=== PATIENT | female | born 1985 | race Hispanic/Latino ===

== ENCOUNTER 2019-02-05 14:01 | Emergency (ER) | payer MEDICAID ==
[~2019-02-05 14:01] MED LIST: ALPR2TAB2 PO
[2019-02-05 14:25] LABS: APPEARANCE,URINE Cloudy (CLEAR); BILIRUBIN,URINE Negative (NEGATIVE); COLOR,URINE Yellow (YELLOW); GLUCOSE, URINE (UA) Negative (NEGATIVE); KETONES,URINE Negative (NEGATIVE); LEUKOCYTE ESTERASE ,URINE Small (NEGATIVE); NITRATE,URINE Negative (NEGATIVE); OCCULT BLOOD,URINE Negative (NEGATIVE); PROTEIN,URINE Negative (NEGATIVE)
[2019-02-05 14:30] LABS: HCG,QUAL RESULT NEGATIVE (NEGATIVE)
[2019-02-05] MEDS ORDERED: ORPHENADRINE CITRATE 30 MG/ML ML ONE (14:34)
[2019-02-05] MEDS ORDERED: KETOROLAC TROMETHAMINE 60 MG/2 ML VIAL ONE (14:34)
[2019-02-05 15:01] LABS: AMORPHOUS SEDIMENT,UR Many /LPF (None Seen); BACTERIA,URINE Few /HPF (None Seen); RBC,URINE None Seen /HPF (0-1)
== END 2019-02-05 15:38 | disposition home or self-care (01) ==
LOC: EDH 14:01
DX: S29.012A Strain of muscle and tendon of back wall of thorax, initial encounter (principal); N39.0 Urinary tract infection, site not specified; Z98.890 Other specified postprocedural states; X58.XXXA Exposure to other specified factors, initial encounter; Y93.89 Activity, other specified; Y92.89 Other specified places as the place of occurrence of the external cause; Y99.8 Other external cause status
CPT/HCPCS: 71046; 81001; 81025; 96372 ×2; 99285; J1885; J2360

== ENCOUNTER 2020-05-10 02:25 | Emergency (ER) | payer MEDICAID ==
[2020-05-10 03:33] LABS: BASOPHILS % (AUTO) 0.7 % (0.0-5.0); EOSINOPHILS % (AUTO) 2.8 % (0.0-8.0); HEMATOCRIT 38.4 % (36-48); LYMPHOCYTES % (AUTO) 35.8 % (21.0-51.0); MEAN CORPUSCULAR HEMOGLOBIN 28.9 pg (27.0-33.0); MEAN CORPUSCULAR HGB CONC 32.6 g/dL (32.0-36.0); MEAN CORPUSCULAR VOLUME 88.9 fL (79-99); MONOCYTES % (AUTO) 7.8 % (3.0-13.0); NEUTROPHILS % (AUTO) 52.6 % (40.0-77.0); PLATELET COUNT (AUTO) 370 K/uL (130-400); RED BLOOD CELL COUNT(AUTO) 4.32 MIL/uL (4.00-5.50); RED CELL DISTRIBUTION WIDTH 12.1 % (11.0-15.5); WHITE BLOOD COUNT (AUTO) 7.2 K/uL (4.8-10.8)
[2020-05-10 03:42] LABS: CREATININE 0.9 mg/dL (0.5-1.5); POTASSIUM 3.4 mmol/L (3.5-5.1)
[2020-05-10 03:53] LABS: ALBUMIN 3.7 g/dL (3.5-5.0); BILIRUBIN,TOTAL 0.2 mg/dL (0.2-1.0); TOTAL PROTEIN, SERUM 6.9 g/dL (6.0-8.3)
[2020-05-10 04:22] LABS: APPEARANCE,URINE Clear (CLEAR); BILIRUBIN,URINE Negative (NEGATIVE); COLOR,URINE Yellow (YELLOW); GLUCOSE, URINE (UA) Negative (NEGATIVE); KETONES,URINE Negative (NEGATIVE); LEUKOCYTE ESTERASE ,URINE Small (NEGATIVE); NITRATE,URINE Negative (NEGATIVE); OCCULT BLOOD,URINE Negative (NEGATIVE); PH,URINE 6.5 (5.0-8.0); PROTEIN,URINE Negative (NEGATIVE)
[2020-05-10 04:28] LABS: RBC,URINE 0-1 /HPF (0-1)
[2020-05-10 04:29] LABS: BACTERIA,URINE None Seen /HPF (None Seen); SQUAMOUS EPITHELIAL CELL,UR Few /HPF (0-2); TRICHOMONAS,URINE Moderate /LPF (None Seen)
[2020-05-10 04:30] LABS: AMPHET/METH SCREEN,URINE POSITIVE (NEGATIVE); BARBITURATE SCREEN, URINE NEGATIVE (NEGATIVE); BENZODIAZEPINES SCREEN,URINE NEGATIVE (NEGATIVE); CANNABINOID SCREEN,URINE POSITIVE (NEGATIVE); COCAINE SCREEN,URINE POSITIVE (NEGATIVE); OPIATE SCREEN,URINE NEGATIVE (NEGATIVE); PHENCYCLIDINE SCREEN,URINE NEGATIVE (NEGATIVE)
[2020-05-10] MEDS ORDERED: CEFTRIAXONE SODIUM 1 GM ONE (04:45)
[2020-05-10] MEDS ORDERED: AZITHROMYCIN 250 MG TABLET PO ONE (04:45)
[2020-05-10] MEDS ORDERED: METRONIDAZOLE 250 MG TABLET ONE (04:46)
== END 2020-05-10 05:32 | disposition home or self-care (01) ==
LOC: EDH 02:25
DX: A59.01 Trichomonal vulvovaginitis (principal); F19.10 Other psychoactive substance abuse, uncomplicated
CPT/HCPCS: 36415; 74018; 80053; 80305; 81001; 84702; 85025; 87088; 96372; 99284; J0696

== ENCOUNTER 2021-01-23 18:32 | Emergency (ER) | payer MEDICAID ==
[~2021-01-23 18:32] MED LIST changes: +SYMB8060 IH
[2021-01-23] MEDS ORDERED: ACETAMINOPHEN 500 MG TABLET ONE (19:20)
== END 2021-01-23 19:31 ==
LOC: EDH 18:32 → EEVIPCON 18:32 → EDH 19:31
DX: Z02.89 Encounter for other administrative examinations (principal)

== ENCOUNTER 2021-06-16 12:52 | Emergency (ER) | payer MEDICAID ==
[~2021-06-16] VITALS: Ht 167.6 cm; Wt 73.5 kg
[2021-06-16 13:26] LABS: BASOPHILS % (AUTO) 0.4 % (0.0-5.0); EOSINOPHILS % (AUTO) 0.2 % (0.0-8.0); LYMPHOCYTES % (AUTO) 9.7 % (21.0-51.0); MEAN CORPUSCULAR HEMOGLOBIN 29.1 pg (27.0-33.0); MEAN CORPUSCULAR HGB CONC 32.8 g/dL (32.0-36.0); MEAN CORPUSCULAR VOLUME 88.7 fL (79-99); MONOCYTES % (AUTO) 6.2 % (3.0-13.0); PLATELET COUNT (AUTO) 254 K/uL (130-400); RED BLOOD CELL COUNT(AUTO) 4.85 MIL/uL (4.00-5.50); RED CELL DISTRIBUTION WIDTH 13.1 % (11.0-15.5); WHITE BLOOD COUNT (AUTO) 14.2 K/uL (4.8-10.8)
[2021-06-16] MEDS ORDERED: KETOROLAC 30MG VIAL (30MG/ML) IVP ONE (13:30)
[2021-06-16] MEDS ORDERED: ONDANSETRON 4MG INJ IVP ONE (13:30)
[2021-06-16] MEDS ORDERED: 0.9%NACL 1000ML 1,000 ML IV ONE (13:30)
[2021-06-16 13:40] LABS: ALANINE AMINOTRANSFERASE 16 U/L (12-78); ALBUMIN 3.2 g/dL (3.5-5.0); ASPARTATE AMINOTRANSFERASE 24 U/L (10-37); BILIRUBIN,TOTAL 0.9 mg/dL (0.2-1.0); CARBON DIOXIDE 27 mmol/L (21-32); CHLORIDE 98 mmol/L (101-111); CREATININE 0.8 mg/dL (0.5-1.5); GLOMERULAR FILTR. RATE CALC 87 mL/min (>60); GLUCOSE,RANDOM 105 mg/dL (70-105); POTASSIUM 4.4 mmol/L (3.5-5.1); SODIUM SERUM 136 mmol/L (136-145); TOTAL PROTEIN, SERUM 7.6 g/dL (6.0-8.3); UREA NITROGEN, BLOOD 8 mg/dL (7-18)
[2021-06-16 13:58] LABS: LIPASE < 50 U/L (114-286)
[2021-06-16 13:59] LABS: APPEARANCE,URINE Clear (CLEAR); BILIRUBIN,URINE Negative (NEGATIVE); COLOR,URINE Yellow (YELLOW); GLUCOSE, URINE (UA) Negative (NEGATIVE); KETONES,URINE 40 mg/dL (NEGATIVE); LEUKOCYTE ESTERASE ,URINE Moderate (NEGATIVE); NITRATE,URINE Negative (NEGATIVE); OCCULT BLOOD,URINE Trace (NEGATIVE); PH,URINE 8.5 (5.0-8.0); PROTEIN,URINE POS 1+ mg/dL (NEGATIVE)
[2021-06-16 14:20] LABS: BACTERIA,URINE Few /HPF (None Seen); MUCUS,URINE Few LPF (None Seen); SQUAMOUS EPITHELIAL CELL,UR Few /HPF (0-2)
[2021-06-16] MEDS ORDERED: CEFTRIAXONE 1G VIAL IVP ONE (15:30)
[2021-06-16] MEDS ORDERED: PHENAZOPYRIDINE HCL 200 MG TABLET PO ONE (15:30)
[2021-06-16] MEDS ORDERED: ONDA4TAB10 PO (15:38)
[2021-06-16] MEDS ORDERED: PHEN-847 PO (15:38)
[2021-06-16] MEDS ORDERED: CEPH500B PO (15:38)
[2021-06-16 15:48] VITALS: BP 128/76
== END 2021-06-16 16:05 | disposition home or self-care (01) ==
LOC: EDH 12:52
DX: N13.2 Hydronephrosis with renal and ureteral calculous obstruction (principal); N39.0 Urinary tract infection, site not specified; Z79.899 Other long term (current) drug therapy; Z79.51 Long term (current) use of inhaled steroids; Z98.51 Tubal ligation status
CPT/HCPCS: 36415; 71045; 74176; 80053; 81001; 81025; 83690; 84703; 85025; 87077; 87088; 87186; 96361; 96374; 96375; 99285; J0696; J1885; J2405; J7030

== ENCOUNTER 2021-08-13 04:14 | Emergency (ER) | payer MEDICAID ==
[~2021-08-13] VITALS: Ht 172.7 cm; Wt 73.5 kg
[~2021-08-13 04:14] MED LIST changes: +CEPH500B PO; +ONDA4TAB10 PO; +PHEN-847 PO
[2021-08-13] MEDS ORDERED: MORPHINE 4 MG SYG IVP ONE (04:30)
[2021-08-13] MEDS ORDERED: ONDANSETRON 4MG INJ IVP ONE (04:30)
[2021-08-13] MEDS ORDERED: FENTANYL CITRATE PF 50 MCG/1 ML 2ML VIAL ONE (04:33)
[2021-08-13] MEDS ORDERED: ONDANSETRON 4MG INJ ONE (04:33)
[2021-08-13 04:44] LABS: BASOPHILS % (AUTO) 0.3 % (0.0-5.0); EOSINOPHILS % (AUTO) 1.5 % (0.0-8.0); HEMATOCRIT 36.4 % (36-48); LYMPHOCYTES % (AUTO) 17.3 % (21.0-51.0); MEAN CORPUSCULAR HEMOGLOBIN 28.6 pg (27.0-33.0); MEAN CORPUSCULAR HGB CONC 33.2 g/dL (32.0-36.0); MEAN CORPUSCULAR VOLUME 86.1 fL (79-99); MONOCYTES % (AUTO) 6.1 % (3.0-13.0); NEUTROPHILS % (AUTO) 74.5 % (40.0-77.0); PLATELET COUNT (AUTO) 290 K/uL (130-400); RED BLOOD CELL COUNT(AUTO) 4.23 MIL/uL (4.00-5.50); RED CELL DISTRIBUTION WIDTH 12.7 % (11.0-15.5); WHITE BLOOD COUNT (AUTO) 10.3 K/uL (4.8-10.8)
[2021-08-13 04:59] LABS: CARBON DIOXIDE 26 mmol/L (21-32); CHLORIDE 103 mmol/L (101-111); CREATININE 0.7 mg/dL (0.5-1.5); GLOMERULAR FILTR. RATE CALC 102 mL/min (>60); GLUCOSE,RANDOM 95 mg/dL (70-105); POTASSIUM 3.9 mmol/L (3.5-5.1); SODIUM SERUM 136 mmol/L (136-145); UREA NITROGEN, BLOOD 11 mg/dL (7-18)
[2021-08-13] MEDS ORDERED: FENTANYL CITRATE PF 50 MCG/1 ML 2ML VIAL IVP ONE (05:00)
[2021-08-13 05:04] LABS: ALANINE AMINOTRANSFERASE 24 U/L (12-78); ALBUMIN 4.1 g/dL (3.5-5.0); ALCOHOL, BLOOD < 3 mg/dL (0-10); ASPARTATE AMINOTRANSFERASE 21 U/L (10-37); BILIRUBIN,TOTAL 0.4 mg/dL (0.2-1.0); TOTAL PROTEIN, SERUM 7.1 g/dL (6.0-8.3)
[2021-08-13 06:20] VITALS: BP 112/82
== END 2021-08-13 08:10 | disposition left against medical advice (07) ==
LOC: EDH 04:14
DX: S53.105A Unspecified dislocation of left ulnohumeral joint, initial encounter (principal); Z79.899 Other long term (current) drug therapy; W18.39XA Other fall on same level, initial encounter; Y93.89 Activity, other specified; Y92.89 Other specified places as the place of occurrence of the external cause; Y99.8 Other external cause status
CPT/HCPCS: 24600; 36415; 73070 ×2; 80053; 85025; 96374; 96375; 99284; J2405; J3010; 24640

== ENCOUNTER 2022-01-03 23:16 | Emergency (ER) | payer OTHER, MEDICAID ==
[~2022-01-03] VITALS: Ht 152.4 cm; Wt 71.2 kg
[2022-01-03 23:51] LABS: BASOPHILS % (AUTO) 0.5 % (0.0-5.0); EOSINOPHILS % (AUTO) 1.9 % (0.0-8.0); HEMATOCRIT 38.1 % (36-48); LYMPHOCYTES % (AUTO) 32.3 % (21.0-51.0); MEAN CORPUSCULAR HEMOGLOBIN 29.3 pg (27.0-33.0); MEAN CORPUSCULAR HGB CONC 33.1 g/dL (32.0-36.0); MEAN CORPUSCULAR VOLUME 88.6 fL (79-99); MONOCYTES % (AUTO) 10.6 % (3.0-13.0); NEUTROPHILS % (AUTO) 54.4 % (40.0-77.0); PLATELET COUNT (AUTO) 336 K/uL (130-400); RED CELL DISTRIBUTION WIDTH 13.3 % (11.0-15.5); WHITE BLOOD COUNT (AUTO) 8.8 K/uL (4.8-10.8)
[2022-01-04] LABS: POTASSIUM 4.1 mmol/L (3.5-5.1)
[2022-01-04] MEDS ORDERED: CEFAZOLIN SODIUM 1 GM VIAL IVP SCH
[2022-01-04] MEDS ORDERED: MORPHINE 4 MG SYG IVP ONE
[2022-01-04] MEDS ORDERED: ONDANSETRON 4MG INJ IVP ONE
[2022-01-04] MEDS ORDERED: KETOROLAC 15MG/ML VIAL (15MG/ML) IV ONE
[2022-01-04 00:05] LABS: ALBUMIN 3.4 g/dL (3.5-5.0); BILIRUBIN,TOTAL 0.2 mg/dL (0.2-1.0); TOTAL PROTEIN, SERUM 6.4 g/dL (6.0-8.3)
[2022-01-04 00:26] LABS: INR 0.93 (0.85-1.15); PROTHROMBIN TIME 9.7 SEC (9.6-11.6)
[2022-01-04 00:35] VITALS: BP 121/76
[2022-01-04] MEDS ORDERED: ACET-2079 PO (00:51)
[2022-01-04] MEDS ORDERED: CEPH500B PO (00:51)
== END 2022-01-04 02:18 | disposition home or self-care (01) ==
LOC: EDH 23:16
DX: S92.341A Displaced fracture of fourth metatarsal bone, right foot, initial encounter for closed fracture (principal); S92.351A Displaced fracture of fifth metatarsal bone, right foot, initial encounter for closed fracture; F17.200 Nicotine dependence, unspecified, uncomplicated; Z79.1 Long term (current) use of non-steroidal anti-inflammatories (NSAID); Z79.51 Long term (current) use of inhaled steroids; W34.00XA Accidental discharge from unspecified firearms or gun, initial encounter; Y93.89 Activity, other specified; Y92.89 Other specified places as the place of occurrence of the external cause; Y99.8 Other external cause status
CPT/HCPCS: 29515; 36415; 73630; 80053; 85025; 85610; 96374; 96375; 99284; J0690; J1885; J2270; J2405

== ENCOUNTER 2022-01-21 14:42 | Emergency (ER) | payer OTHER, MEDICAID ==
[~2022-01-21] VITALS: Ht 167.6 cm; Wt 68.9 kg
[~2022-01-21 14:42] MED LIST changes: +ACET-2079 PO
[2022-01-21] MEDS ORDERED: CEFTRIAXONE 1G VIAL IM ONE (15:00)
[2022-01-21] MEDS ORDERED: HYDROCODONE/ACETAMINOPHEN 10/325 MG TAB PO ONE (15:00)
[2022-01-21] MEDS ORDERED: AZITHROMYCIN 250 MG TABLET PO ONE (15:00)
[2022-01-21] MEDS ORDERED: ACET1TAB97 PO (15:46)
[2022-01-21 16:13] LABS: APPEARANCE,URINE Clear (CLEAR); BILIRUBIN,URINE Negative (NEGATIVE); COLOR,URINE Yellow (YELLOW); GLUCOSE, URINE (UA) Negative (NEGATIVE); KETONES,URINE Negative (NEGATIVE); LEUKOCYTE ESTERASE ,URINE Small (NEGATIVE); NITRATE,URINE Negative (NEGATIVE); OCCULT BLOOD,URINE Negative (NEGATIVE); PROTEIN,URINE Negative (NEGATIVE); UROBILINOGEN,URINE 0.2 mg/dL (0.2-1.0)
[2022-01-21 16:21] LABS: BACTERIA,URINE Rare /HPF (None Seen); MUCUS,URINE Few LPF (None Seen); RBC,URINE 0-1 /HPF (0-1); SQUAMOUS EPITHELIAL CELL,UR Few /HPF (0-2)
[2022-01-21 16:24] VITALS: BP 110/65
== END 2022-01-21 16:25 | disposition home or self-care (01) ==
LOC: EDH 14:42
DX: S91.331A Puncture wound without foreign body, right foot, initial encounter (principal); A64 Unspecified sexually transmitted disease; F17.200 Nicotine dependence, unspecified, uncomplicated; Z79.899 Other long term (current) drug therapy; Z98.890 Other specified postprocedural states; W34.00XA Accidental discharge from unspecified firearms or gun, initial encounter; Y93.89 Activity, other specified; Y92.89 Other specified places as the place of occurrence of the external cause; Y99.8 Other external cause status
CPT/HCPCS: 99284; 87797; 87486; 81001; 73630; 96372; J0696

== ENCOUNTER 2022-02-17 11:44 | Emergency (ER) | payer MEDICAID ==
[~2022-02-17] VITALS: Ht 167.6 cm; Wt 68.9 kg
[~2022-02-17 11:44] MED LIST changes: +ACET1TAB97 PO
[2022-02-17 12:05] LABS: BASOPHILS % (AUTO) 0.5 % (0.0-5.0); EOSINOPHILS % (AUTO) 0.9 % (0.0-8.0); HEMATOCRIT 36.4 % (36-48); LYMPHOCYTES % (AUTO) 26.5 % (21.0-51.0); MEAN CORPUSCULAR HGB CONC 32.7 g/dL (32.0-36.0); MEAN CORPUSCULAR VOLUME 88.8 fL (79-99); MONOCYTES % (AUTO) 8.3 % (3.0-13.0); NEUTROPHILS % (AUTO) 63.6 % (40.0-77.0); PLATELET COUNT (AUTO) 390 K/uL (130-400); RED CELL DISTRIBUTION WIDTH 12.6 % (11.0-15.5); WHITE BLOOD COUNT (AUTO) 8.4 K/uL (4.8-10.8)
[2022-02-17 12:27] LABS: CREATININE 0.8 mg/dL (0.5-1.5); POTASSIUM 3.8 mmol/L (3.5-5.1)
[2022-02-17] MEDS ORDERED: ZOSYN 3.375GM +NS 50ML IV SCH (12:30)
[2022-02-17] MEDS ORDERED: MORPHINE 4 MG SYG IVP ONE ×2 (12:30→16:30)
[2022-02-17] MEDS ORDERED: ONDANSETRON 4MG INJ IVP ONE (12:30)
[2022-02-17] MEDS ORDERED: 0.9%NACL 1000ML 1,000 ML IV SCH (12:30)
[2022-02-17 12:33] LABS: ALBUMIN 3.8 g/dL (3.5-5.0); BILIRUBIN,TOTAL 0.3 mg/dL (0.2-1.0); TOTAL PROTEIN, SERUM 7.6 g/dL (6.0-8.3)
[2022-02-17 13:55] VITALS: BP 125/87
[2022-02-17] MEDS ORDERED: ACET-2079 PO (15:58)
[2022-02-17] MEDS ORDERED: DOXY-336 PO (15:58)
[2022-02-17] MEDS ORDERED: TRAM50TA4 PO (17:02)
== END 2022-02-17 17:17 | disposition home or self-care (01) ==
LOC: EDH 11:44
DX: L08.9 Local infection of the skin and subcutaneous tissue, unspecified (principal); M79.674 Pain in right toe(s); F31.9 Bipolar disorder, unspecified; F17.200 Nicotine dependence, unspecified, uncomplicated; Z98.890 Other specified postprocedural states; Z79.899 Other long term (current) drug therapy
CPT/HCPCS: 36415; 73630; 80053; 83605; 84145; 84703; 85025; 85651; 86140; 87040 ×2; 96365; 96375; 96376; 99284; J2270 ×2; J2405; J2543; J7030

== ENCOUNTER 2023-07-30 15:34 | Emergency (ER) | payer OTHER, MEDICAID ==
[~2023-07-30] VITALS: Ht 167.6 cm; Wt 71.7 kg
[~2023-07-30 15:34] MED LIST changes: -ACET-2079 PO; -ACET1TAB97 PO; -ALPR2TAB2 PO; -ONDA4TAB10 PO; -PHEN-847 PO; -SYMB8060 IH
[2023-07-30 16:01] VITALS: BP 143/87; PULSE 107; RESP 16; O2SAT 99
[2023-07-30] MEDS ORDERED: SOLU-MEDROL 125MG VIAL IVP ONE (16:30)
[2023-07-30] MEDS ORDERED: CEFTRIAXONE 1G VIAL IVPB ONE (16:30)
[2023-07-30] MEDS ORDERED: FAMOTIDINE 20MG VIAL IV ONE (16:30)
[2023-07-30] MEDS ORDERED: 0.9%NACL 1000ML 1,000 ML IV ONE (16:30)
[2023-07-30] MEDS ORDERED: LIDOCAINE HCL 1% 20 ML VIAL INJ SCH (16:30)
[2023-07-30] MEDS ORDERED: DiphenhydrAMINE HCL 50 MG/ML VIAL IV ONE (16:30)
[2023-07-30 16:58] LABS: BASOPHILS # (AUTO) 0.03 K/uL (0.00-0.20); BASOPHILS % (AUTO) 0.3 % (0.0-5.0); EOSINOPHILS # (AUTO) 0.06 K/uL (0.00-0.70); EOSINOPHILS % (AUTO) 0.7 % (0.0-8.0); HEMATOCRIT 38.2 % (36-48); IMMATURE GRANULOCYTE ABSOLUTE 0.03 K/uL (0-1); LYMPHOCYTES # (AUTO) 2.7 K/uL (1.0-4.8); LYMPHOCYTES % (AUTO) 29.6 % (21.0-51.0); MEAN CORPUSCULAR HEMOGLOBIN 29.2 pg (27.0-33.0); MEAN CORPUSCULAR HGB CONC 33.5 g/dL (32.0-36.0); MONOCYTES # (AUTO) 0.6 K/uL (0.1-1.0); MONOCYTES % (AUTO) 6.1 % (3.0-13.0); NEUTROPHILS # (AUTO) 5.7 K/uL (1.8-7.7); PLATELET COUNT (AUTO) 360 K/uL (130-400); RED BLOOD CELL COUNT(AUTO) 4.39 MIL/uL (4.00-5.50); RED CELL DISTRIBUTION WIDTH 12.3 % (11.0-15.5); WHITE BLOOD COUNT (AUTO) 9.1 K/uL (4.8-10.8)
[2023-07-30 16:59] LABS: CREATININE 0.8 mg/dL (0.5-1.5); POTASSIUM 3.6 mmol/L (3.5-5.1)
[2023-07-30 17:04] LABS: ALBUMIN 3.7 g/dL (3.5-5.0); BILIRUBIN,TOTAL 0.5 mg/dL (0.2-1.0); TOTAL PROTEIN, SERUM 7.3 g/dL (6.0-8.3)
[2023-07-30] MEDS ORDERED: AMOX1TAB16 PO (17:10)
[2023-07-30 17:21] LABS: APPEARANCE,URINE CLEAR (CLEAR); BILIRUBIN,URINE NEGATIVE (NEGATIVE); COLOR,URINE YELLOW (YELLOW); GLUCOSE, URINE (UA) NEGATIVE (NEGATIVE); KETONES,URINE 20 mg/dL (NEGATIVE); LEUKOCYTE ESTERASE ,URINE NEGATIVE Leu/uL (NEGATIVE); NITRATE,URINE NEGATIVE (NEGATIVE); OCCULT BLOOD,URINE NEGATIVE (NEGATIVE); PROTEIN,URINE 30 mg/dL (NEGATIVE)
[2023-07-30 17:44] LABS: ADD UA MICROSCOPIC YES
[2023-07-30 17:46] LABS: BACTERIA,URINE RARE /HPF (None Seen); MUCUS,URINE MANY LPF (None Seen); RBC,URINE 0-1 /HPF (0-1); SQUAMOUS EPITHELIAL CELL,UR FEW /HPF (0-2); WBC,URINE 0-1 /HPF (0-1)
== END 2023-07-30 17:56 | disposition home or self-care (01) ==
LOC: EDH 15:34
DX: T78.49XA Other allergy, initial encounter (principal); L02.211 Cutaneous abscess of abdominal wall; F17.200 Nicotine dependence, unspecified, uncomplicated; Z79.899 Other long term (current) drug therapy; Z98.890 Other specified postprocedural states; Z88.8 Allergy status to other drugs, medicaments and biological substances; X58.XXXA Exposure to other specified factors, initial encounter
CPT/HCPCS: 99284; 96365; 10060; 96375; 80053; 85025; 87070; 87076; 87077; 87186; 83605; 81001; 36415; J1200; J3490; J2930; J0696

== ENCOUNTER 2023-11-03 02:22 | Emergency (ER) | payer OTHER, MEDICAID ==
[~2023-11-03] VITALS: Ht 167.6 cm; Wt 81.6 kg
[~2023-11-03 02:22] MED LIST changes: +AMOX1TAB16 PO
[2023-11-03 03:08] LABS: CARBON DIOXIDE 29 mmol/L (21-32); CHLORIDE 104 mmol/L (101-111); CREATININE 0.7 mg/dL (0.5-1.0); GLOMERULAR FILTR. RATE CALC 115 mL/min (>90); POTASSIUM 3.1 mmol/L (3.5-5.1); SODIUM SERUM 140 mmol/L (136-145); UREA NITROGEN, BLOOD 15 mg/dL (7-18)
[2023-11-03 03:12] LABS: ALANINE AMINOTRANSFERASE 15 U/L (12-78); ALBUMIN 3.7 g/dL (3.5-5.0); ALCOHOL, BLOOD < 3 mg/dL (0-10); ASPARTATE AMINOTRANSFERASE 16 U/L (10-37); BILIRUBIN,TOTAL 0.1 mg/dL (0.2-1.0); CREATINE KINASE, TOTAL 70 U/L (21-232)
[2023-11-03 03:18] LABS: GLUCOSE,RANDOM 119 mg/dL (70-105)
[2023-11-03 03:21] LABS: ACETAMINOPHEN < 1 mcg/mL (10-30); SALICYLATE < 2.8 mg/dL (2.8-20.0)
[2023-11-03 03:28] LABS: BASOPHILS # (AUTO) 0.05 K/uL (0.00-0.20); BASOPHILS % (AUTO) 0.5 % (0.0-5.0); EOSINOPHILS # (AUTO) 0.15 K/uL (0.00-0.70); EOSINOPHILS % (AUTO) 1.6 % (0.0-8.0); HEMATOCRIT 40.1 % (36-48); IMMATURE GRANULOCYTE ABSOLUTE 0.03 K/uL (0-1); LYMPHOCYTES # (AUTO) 3.8 K/uL (1.0-4.8); LYMPHOCYTES % (AUTO) 39.3 % (21.0-51.0); MEAN CORPUSCULAR HEMOGLOBIN 29.3 pg (27.0-33.0); MEAN CORPUSCULAR HGB CONC 33.2 g/dL (32.0-36.0); MEAN CORPUSCULAR VOLUME 88.3 fL (79-99); MONOCYTES # (AUTO) 0.6 K/uL (0.1-1.0); MONOCYTES % (AUTO) 6.2 % (3.0-13.0); NEUTROPHILS % (AUTO) 52.1 % (40.0-77.0); PLATELET COUNT (AUTO) 297 K/uL (130-400); RED BLOOD CELL COUNT(AUTO) 4.54 MIL/uL (4.00-5.50); RED CELL DISTRIBUTION WIDTH 12.9 % (11.0-15.5); WHITE BLOOD COUNT (AUTO) 9.5 K/uL (4.8-10.8)
[2023-11-03 06:06] LABS: APPEARANCE,URINE TURBID (CLEAR); BILIRUBIN,URINE NEGATIVE (NEGATIVE); COLOR,URINE LIGHT-YELLOW (YELLOW); GLUCOSE, URINE (UA) NEGATIVE (NEGATIVE); KETONES,URINE NEGATIVE (NEGATIVE); LEUKOCYTE ESTERASE ,URINE NEGATIVE Leu/uL (NEGATIVE); NITRATE,URINE NEGATIVE (NEGATIVE); OCCULT BLOOD,URINE NEGATIVE (NEGATIVE); PH,URINE 6.5 (5.0-8.0); PROTEIN,URINE NEGATIVE (NEGATIVE); UROBILINOGEN,URINE 0.2 mg/dL (0.2-1.0)
[2023-11-03 06:12] LABS: ADD UA MICROSCOPIC YES
[2023-11-03 06:13] LABS: AMPHET/METH SCREEN,URINE NEGATIVE (NEGATIVE); BARBITURATE SCREEN, URINE NEGATIVE (NEGATIVE); BENZODIAZEPINES SCREEN,URINE NEGATIVE (NEGATIVE); CANNABINOID SCREEN,URINE POSITIVE (NEGATIVE); COCAINE SCREEN,URINE POSITIVE (NEGATIVE); HCG,QUALITATIVE URINE NEGATIVE (NEGATIVE); OPIATE SCREEN,URINE NEGATIVE (NEGATIVE); PHENCYCLIDINE SCREEN,URINE NEGATIVE (NEGATIVE)
[2023-11-03 06:15] LABS: BACTERIA,URINE RARE /HPF (None Seen); MUCUS,URINE RARE LPF (None Seen); SQUAMOUS EPITHELIAL CELL,UR FEW /HPF (0-2)
[2023-11-03] MEDS: KCL 20 MEQ ERTAB PO ONE (07:47)
[2023-11-03 10:50] VITALS: BP 118/68; PULSE 78; RESP 16; O2SAT 99
== END 2023-11-03 10:53 ==
LOC: EDH 02:22
DX: R45.851 Suicidal ideations (principal); E87.6 Hypokalemia; F19.10 Other psychoactive substance abuse, uncomplicated; F17.200 Nicotine dependence, unspecified, uncomplicated; F41.9 Anxiety disorder, unspecified
CPT/HCPCS: 99285; 82550; 80053; 80305; 85025; 81001; 81025; 36415; G0481

== ENCOUNTER 2024-02-24 21:35 | Emergency (ER) | payer MEDICAID, OTHER ==
[~2024-02-24] VITALS: Ht 165.1 cm; Wt 72.6 kg
[2024-02-24 21:54] VITALS: BP 109/60; PULSE 78; RESP 16
[2024-02-24 23:05] LABS: APPEARANCE,URINE CLEAR (CLEAR); BILIRUBIN,URINE NEGATIVE (NEGATIVE); GLUCOSE, URINE (UA) NEGATIVE (NEGATIVE); KETONES,URINE NEGATIVE (NEGATIVE); LEUKOCYTE ESTERASE ,URINE NEGATIVE Leu/uL (NEGATIVE); NITRATE,URINE NEGATIVE (NEGATIVE); OCCULT BLOOD,URINE SMALL (NEGATIVE); PROTEIN,URINE NEGATIVE (NEGATIVE); RBC,URINE 0-1 /HPF (0-1); UROBILINOGEN,URINE 0.2 mg/dL (0.2-1.0); WBC,URINE 0-1 /HPF (0-1)
[2024-02-24 23:06] LABS: COLOR,URINE YELLOW (YELLOW)
[2024-02-24 23:07] LABS: HCG,QUALITATIVE URINE NEGATIVE (NEGATIVE)
[2024-02-24 23:17] LABS: AMPHET/METH SCREEN,URINE NEGATIVE (NEGATIVE); BARBITURATE SCREEN, URINE NEGATIVE (NEGATIVE); BENZODIAZEPINES SCREEN,URINE NEGATIVE (NEGATIVE); CANNABINOID SCREEN,URINE NEGATIVE (NEGATIVE); COCAINE SCREEN,URINE NEGATIVE (NEGATIVE); OPIATE SCREEN,URINE NEGATIVE (NEGATIVE); PHENCYCLIDINE SCREEN,URINE NEGATIVE (NEGATIVE)
[2024-02-24] MEDS: DiphenhydrAMINE HCL 50 MG/ML VIAL IV ONE (23:31)
[2024-02-24] MEDS: KETOROLAC 15MG/ML VIAL (15MG/ML) IV ONE (23:31)
[2024-02-24] MEDS: PROCHLORPERAZINE 10MG/2ML INJ IV ONE (23:31)
== END 2024-02-25 01:07 | disposition home or self-care (01) ==
LOC: EDH 21:35
DX: G43.909 Migraine, unspecified, not intractable, without status migrainosus (principal); F41.9 Anxiety disorder, unspecified; F17.200 Nicotine dependence, unspecified, uncomplicated; F31.9 Bipolar disorder, unspecified
CPT/HCPCS: 99285; 70450; 96374; 96375; 80305; 81025; 72125; 81001; J1200; J0780; J1885

== ENCOUNTER 2024-06-24 14:22 | Emergency (ER) | payer MEDICAID ==
[~2024-06-24] VITALS: Ht 167.6 cm; Wt 67.1 kg
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
[2024-06-24] MEDS: DiphenhydrAMINE HCL 50 MG/ML VIAL IV ONE (15:52)
[2024-06-24] MEDS: Solu-medROL 40MG VIAL IVP ONE (15:52)
[2024-06-24] MEDS: 0.9%NACL 1000ML 1,000 ML IV ONE (15:52)
[2024-06-24] MEDS ORDERED: CETI10CA5 PO (15:59)
[2024-06-24] MEDS ORDERED: PRED20TA3 PO (15:59)
[2024-06-24 16:43] VITALS: BP 109/67; PULSE 74; RESP 16; TEMP 97.6; O2SAT 99
--- NOTE | 2024-06-24 17:01 | NUR ---
CONTACTED PT MOMS PHONE, PER MOM WILL BE HERE IN ETA 30MINS-1 HOUR MOTHER IS STILL AT WORK.
--- NOTE | 2024-06-24 18:18 | NUR ---
PT PICKED UP IN FRONT LOBBY DROP OFF CANOPY BY SISTER AND BROTHERNLAW. PT WHEELED OUT IN WHEELCHAIR.
== END 2024-06-24 18:07 | disposition home or self-care (01) ==
LOC: EDH 14:22
DX: T78.40XA Allergy, unspecified, initial encounter (principal); F31.9 Bipolar disorder, unspecified; F17.200 Nicotine dependence, unspecified, uncomplicated; F41.9 Anxiety disorder, unspecified; X58.XXXA Exposure to other specified factors, initial encounter
CPT/HCPCS: 99284; 96374; 96361; 96375; J1200; J7030; J2919

== ENCOUNTER 2024-10-06 11:15 | Emergency (ER) | payer MEDICAID, OTHER ==
[~2024-10-06 11:15] MED LIST changes: +CETI10CA5 PO; +PRED20TA3 PO
== END 2024-10-06 12:04 | disposition left against medical advice (07) ==
LOC: EDH 11:15
DX: R06.02 Shortness of breath (principal); Z53.21 Procedure and treatment not carried out due to patient leaving prior to being seen by health care provider